=== PATIENT | female | born 1960 | race Caucasian/White ===

== ENCOUNTER → 2021-10-15 14:20 | Outpatient (CLI) | payer BC, SELFPAY ==
[2021-10-15 16:15] LABS: COVID19 -Nasal RAPID Negative (Negative)
--- NOTE | 2021-10-15 18:12 | DI.NM.S_ITS ---
DATE OF SERVICE: PROCEDURE: Exercise stress test. DATE OF STUDY: October 15, 2021 INDICATIONS: Exertional shortness of breath. CARDIAC STRESS: The patient underwent exercise stress test under the supervision of an attending staff using standard Jesse protocol. The patient walked on Jesse protocol for 6 minutes and 26 seconds and achieved 107 percent of target heart rate. Resting blood pressure 160/90 mmHg. Peak blood pressure 210/108 mmHg, suggestive of hypertensive blood pressure response. The patient achieved 7 METs of workload and GIBSON positive 4 percent. The patient felt fatigued. No anginal symptoms. Baseline rhythm was sinus. During peak exercise, the patient developed 1-2 mm horizontal and some upsloping ST depression in inferior leads in V4 to V6 with quick recovery. During stress, patient had frequent short run of SVT consist of 3-4 beats, as well as some PVCs and ventricular couplets without any sustained supraventricular or ventricular arrhythmias. CONCLUSION: 1. This is an abnormal exercise stress test positive for inducible ischemia. 2. Hypertensive blood pressure response. 3. Frequent short run of SVT as well as PVCs and ventricular couplets at peak exercise, without any sustained ventricular tachycardia or sustained SVT. 4. Diminished exercise tolerance. 5. Findings were reported to Dr. Parmar team. AronJuana renner - LAURENT/perry/aryan doc#: [id number]/job#: [id number] dd: 10/15/2021 17:45:00 dt: 10/15/2021 17:59:00 DICTATING MD/COPIES TO: Jocelyne Martinez MD; Be Parmar MD COPIES MNE: RANCHO;
== END ==
PROVIDERS: Referring Provider Student in an Organized Health Care Education/Training Program; Visit Provider Student in an Organized Health Care Education/Training Program
DX: R94.39 Abnormal result of other cardiovascular function study (principal); R03.0 Elevated blood-pressure reading, without diagnosis of hypertension; R06.00 Dyspnea, unspecified; R06.02 Shortness of breath; Z20.822 Contact with and (suspected) exposure to COVID-19
CPT/HCPCS: 87635; 93017